=== PATIENT | female | born 1970 | race Caucasian/White ===

== ENCOUNTER → 2016-06-28 | Outpatient (CLI) | payer OTHER ==
[2016-02-04 11:49] VITALS: BP 113/68
[~2016-06-28] MED LIST: ASPI81TA2 PO; CEPH-264 PO; CITA10TA4 PO; ERGO400T2 PO; GABA-585 PO; GUAI120L35 PO; HYDR-971 PO; INSU100C4 SQ; NAPR500T PO; ONDA4TAB7 PO; PNV1TABL4 PO; PROG100C2 PO; SULF1TAB24 PO
--- NOTE | 2016-06-28 12:53 | KCIC ---
PROCEDURE Three-view cervical spine radiographs 06/28/2016 HISTORY Neck pain for the last few months with left arm pain. FINDINGS AP, lateral and two AP open-mouth odontoid digital radiographs of the cervical spine were obtained. There is mild straightening of the normal cervical lordosis. No fracture or subluxation of the cervical vertebrae is seen. Degenerative changes are seen involving the uncovertebral and facet joints throughout the mid and lower cervical disc spaces. The patient is edentulous. No prevertebral soft tissue swelling is seen. IMPRESSION Degenerative changes are seen involving the mid and lower cervical spine as outlined above. No acute osseous abnormality is seen. Electronically signed by: Natan Garcia MD (June 28, 2016 12:52:08)
== END | disposition home or self-care (01) ==
LOC: KCIC 10:00
PROVIDERS: ATTEND Family Medicine
DX: M47.892 Other spondylosis, cervical region (principal)
CPT/HCPCS: 72040

== ENCOUNTER → 2016-07-03 | Outpatient (CLI) | payer OTHER ==
[2016-02-04 11:49] VITALS: BP 113/68
--- NOTE | 2016-07-03 11:11 | KCIC ---
Left upper extremity arterial Doppler dated 07/03/2016. No comparison available. CLINICAL INDICATION: Cervical radiculopathy. Arm pain. FINDINGS: Grayscale, color-flow and spectral waveform analysis performed to include the arterial tree of the left upper extremity. No significant plaque or focal stenosis is visible. There is biphasic to triphasic waveforms throughout. Velocity measurements are within the range of normal. Left vertebral artery shows antegrade flow. IMPRESSION: No evidence of hemodynamically significant left upper extremity arterial stenosis. Electronically signed by: John Paul Perez MD (07/03/2016 11:08 AM)
== END | disposition home or self-care (01) ==
LOC: KCIC US 09:13
PROVIDERS: ATTEND Family Medicine
DX: M54.12 Radiculopathy, cervical region (principal); M79.602 Pain in left arm
CPT/HCPCS: 93931

== ENCOUNTER → 2016-07-11 | Outpatient (CLI) | payer OTHER ==
[2016-02-04 11:49] VITALS: BP 113/68
--- NOTE | 2016-07-11 11:32 | KCIC ---
EXAM: Cervical spine MRI without contrast. HISTORY: Cervical radiculopathy. TECHNIQUE: Multiplanar, multisequence magnetic resonance imaging of the cervical spine was performed without contrast. COMPARISON: Radiographs dated 06/28/2016. FINDINGS: There is mild anterolisthesis of C2 on C3, within physiologic limits. The vertebral bodies are normal in height and demonstrate normal marrow signal intensity. There are a few small hemangiomas. No suspicious osseous lesion is seen. No spinal cord lesion is seen. There is suspected mild congenital narrowing of the central canal the cervical levels. At C2-C3, there is no stenosis. At C3-C4, there there is minimal central canal stenosis measuring 9.4 mm in anterior posterior dimension. At C4-C5, there is a posterior central to left paracentral disc protrusion superimposed on a disc bulge and endplate remodeling. This abuts the left ventral aspect of the spinal cord and contributes to mild central canal stenosis measuring 8.6 mm in anterior posterior dimension. At C5-C6, there is a minimal posterior central disc protrusion superimposed on a disc bulge and endplate remodeling. There is mild facet arthropathy. There is uncovertebral arthropathy. There is minimal left foraminal stenosis. There is mild central canal stenosis measuring 8.5 mm in anteroposterior dimension. At C6-C7, there is suggestion of a minimal left paracentral to foraminal disc protrusion. There is mild facet arthropathy. There is no stenosis. IMPRESSION: 1. Multilevel degenerative changes of the cervical spine, described in detail above. 2. 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 Electronically signed by: Lidia Ulrich MD (07/11/2016 11:28 AM)
== END | disposition home or self-care (01) ==
LOC: KCIC MRI 10:27
PROVIDERS: ATTEND Family Medicine
DX: M54.12 Radiculopathy, cervical region (principal)
CPT/HCPCS: 72141

== ENCOUNTER → 2016-10-24 | Outpatient (CLI) | payer OTHER ==
[2016-02-04 11:49] VITALS: BP 113/68
[~2016-10-24] MED LIST changes: +ASPI-630 PO; -ASPI81TA2 PO; +GADOBUTROL 7.5 MMOL/7.5 ML VIAL INT ART ONE; +IOHEXOL 300 MG/ML 50 ML VIAL. INT ART ONE; +LIDOCAINE 1% Multi-Dose 20 ML VIAL. ID ONE
--- NOTE | 2016-10-24 14:03 | KCIC ---
Examination: Left Shoulder Arthrogram: Indications: Limited range of motion for 5 to 6 months. Procedure: Risks, benefits and complications including bleeding, infection, blood vessel damage or joint infection were discussed with the patient. Questions were answered and consent form signed. The patient was placed supine on the fluoroscopy table with the shoulder slightly externally rotated. Bony landmarks were used to plan for fluoroscopic injection. The patient was carefully prepped and draped in a sterile fashion. Using fluoroscopic guidance, local anesthetic and a 22 gauge needle the joint space was entered. Intra-articular location was confirmed as approximately 12cc of a mixture of 10 mL of saline, 1.5 mL of lidocaine, 5 mm Omnipaque 300 and 0.1 mL of gadavist was injected to distend the shoulder joint. The procedure was well tolerated and the patient was sent to MRI. The patient was sent home in good condition with instructions to contact referring physician if there develops signs or symptoms of complications, such as pain, bleeding, fever or chills. Impression: Status post fluoroscopic guided arthrogram in preparation for MRI with contrast. Fluoroscopic image 1. Total fluoroscopic time 13 seconds. Electronically signed by: Aaron Farr MD (10/24/2016 1:58 PM) [email or web address]
--- NOTE | 2016-10-24 15:08 | KCIC ---
Examination: MRI left shoulder arthrogram HISTORY: History of left shoulder pain COMPARISON: None available Technique: Multiplanar, multisequence MR imaging of the left shoulder performed after arthrogram injection. FINDINGS: The long head of biceps tendon is within the bicipital groove. The attachment of the long head of the biceps tendon to the superior labrum grossly appears intact. The attachment of the subscapularis tendon grossly appears intact. The attachment of the supraspinatus, infraspinatus tendon grossly appears intact. No evidence of rotator cuff tear identified. The visualized labrum demonstrate no evidence of labral tear. There is some contrast identified inferior to the inferior glenohumeral ligament probably extravasation of contrast from the shoulder joint or due to patulous axillary recess. The visualized superior glenoid labrum ligament, middle glenohumeral ligament, inferior glenohumeral ligament grossly appear intact. Mild acromioclavicular joint osteoarthrosis. The acromion is type II with the inferior aspect of the common abutting the superior aspect of the supraspinatus tendon. The muscle bulk grossly appears unremarkable. IMPRESSION: 1. No evidence of rotator cuff tear or labral tear identified. 2. There is downsloping of the acromion with the inferior aspect of the acromion abutting the superior aspect of the supraspinatus tendon. Correlate for impingement. 3. There is some contrast identified inferior to the inferior glenohumeral ligament probably extravasation of contrast from the shoulder joint or due to patulous axillary recess. Electronically signed by: Aaron Farr MD (10/24/2016 3:04 PM) [id number]
== END | disposition home or self-care (01) ==
LOC: KCIC 12:38
PROVIDERS: ATTEND Nurse Practitioner Gerontology
DX: M75.102 Unspecified rotator cuff tear or rupture of left shoulder, not specified as traumatic (principal); M19.012 Primary osteoarthritis, left shoulder
CPT/HCPCS: 73040; 73222

== ENCOUNTER → 2020-02-17 | Outpatient (CLI) | payer OTHER ==
[2016-02-04 11:49] VITALS: BP 113/68
[~2020-02-17] MED LIST changes: -GADOBUTROL 7.5 MMOL/7.5 ML VIAL INT ART ONE; +HYDR-3164 PO; -HYDR-971 PO; -IOHEXOL 300 MG/ML 50 ML VIAL. INT ART ONE; -LIDOCAINE 1% Multi-Dose 20 ML VIAL. ID ONE; +NAPR-683 PO; -NAPR500T PO; +PROG100C10 PO; -PROG100C2 PO
--- NOTE | 2020-02-17 11:26 | KCIC ---
EXAM: Right knee, 3 views. HISTORY: Pain. COMPARISON: None. FINDINGS: 3 views of the right knee are obtained. There is no fracture, dislocation or subluxation. T here is no joint effusion. There is enthesopathy along the superior patella. IMPRESSION: No acute osseous finding. Electronically signed by: Lidia Ulrich MD (02/17/2020 11:24 AM) [id number]
== END ==
LOC: KCIC 11:02
PROVIDERS: ATTEND Nurse Practitioner Gerontology
DX: M76.51 Patellar tendinitis, right knee (principal); M25.561 Pain in right knee
CPT/HCPCS: 73562